=== PATIENT | male | born 1970 | race Caucasian/White ===

== ENCOUNTER 2023-06-26 10:42 | Emergency (ER) | payer OTHER, SELFPAY ==
[2023-06-26] VITALS (8 sets, daily range): BP systolic 120–148; BP diastolic 70–84; PULSE 71–97; RESP 16–18; TEMP 36.2; O2SAT 96–98; BMI 26.6
--- NOTE | 2023-06-26 10:53 | DI.CT.S_ITS ---
PROCEDURE: CT ABDOMEN PELVIS W CON INDICATIONS: L sided flank pain after fall from ladder TECHNIQUE: After the administration of intravenous contrast, axial sections acquired from the lung bases to the pubic symphysis. Coronal and sagittal reformats were performed. For radiation dose reduction, the following was used: automated exposure control, adjustment of mA and/or kV according to patient size. COMPARISON: None. FINDINGS: Image quality: Excellent. Lung bases: Unremarkable. Heart: No significant findings. ABDOMEN: Liver: Unremarkable. Gallbladder: Unremarkable. Biliary ducts: Unremarkable. Pancreas: Unremarkable. Spleen: Unremarkable. Adrenal Glands: Unremarkable. Kidneys and Ureters: Unremarkable. Stomach and Bowel: Stomach, small bowel loops, and colon are unremarkable. Diverticulosis without evidence of acute diverticulitis. Normal appendix. Peritoneum: No abnormal intraperitoneal fluid. No free air. Ventral Wall: No hernias. Abdominal Nodes: No retroperitoneal or mesenteric adenopathy by size criteria. Vessels: Aorta and inferior vena cava are normal in size. Atherosclerotic vascular calcifications. PELVIS: Pelvic Organs: Unremarkable. Bladder: Unremarkable. Pelvic Nodes: No enlarged lymph nodes. Miscellaneous: No hernias are seen. Mild subcutaneous bruising adjacent to the left iliac bone. Bones: Mild degenerative changes. Bilateral L5 pars interarticularis defects without anterolisthesis. IMPRESSION: 1. No acute traumatic injury. 2. Mild subcutaneous bruising adjacent to the left flank and left iliac bone. 3. Diverticulosis without evidence of acute diverticulitis. Dictated by: Arpit Coleman M.D. on 06/26/2023 at 11:42 Approved by: Arpit Coleman M.D. on 06/26/2023 at 11:46
--- NOTE | 2023-06-26 10:53 | DI.RAD.S_ITS ---
PROCEDURE: XR CHEST 1V INDICATIONS: L lower back pain after fall TECHNIQUE: One view of the chest was acquired. COMPARISON: None. FINDINGS: Surgical changes and devices: None. Lungs and pleura: Lungs are clear. No pleural effusions or pneumothorax. Mediastinum: Mediastinal contours appear normal. Heart size is normal. Bones and chest wall: No suspicious bony lesions. Overlying soft tissues appear unremarkable. IMPRESSION: No acute cardiopulmonary process. Dictated by: Arpit Coleman M.D. on 06/26/2023 at 11:35 Approved by: Arpti Coleman M.D. on 06/26/2023 at 11:36
--- NOTE | 2023-06-26 10:56 | ED_ITS ---
HPI - General Adult General Chief complaint: Trauma Stated complaint: ladder collapse at work Time Seen by Provider: 06/26/23 10:50 Source: patient Mode of arrival: Ambulatory Limitations: no limitations History of Present Illness HPI narrative: 52-year-old male. Was at work. It approximately 30 this morning he was up on a ladder. He states that the aluminum ladder collapsed on him. He was approximately 8 ft off the ground. He landed on the ladder on his left side. Did not hit his head. No loss of consciousness. No extremity injuries. No loss of consciousness. He stated that initially he was feeling okay but has the next several hours went on he started developed quite a bit of pain in his left flank area. He is bruising over his left flank. It is tender to touch and to sit up straight. No abdominal pain. No spine pain. No hip pain. He is ambulatory. Has not tried anything for symptoms prior to arrival. Related Data Previous Rx's Medication Instructions Recorded cyclobenzaprine 10 mg tablet 10 mg PO TID PRN muscle spasm #14 06/26/23 tabs hydrocodone 5 mg-acetaminophen 325 1 tab PO Q4-6H PRN pain #10 tabs 06/26/23 mg tablet Review of Systems Constitutional Constitutional: Reports system reviewed and no additional complaints, except as documented Respiratory Respiratory: Reports system reviewed and no additional complaints, except as documented Gastrointestinal Gastrointestinal: Reports system reviewed and no additional complaints, except as documented Genitourinary Genitourinary: Reports system reviewed and no additional complaints, except as documented Musculoskeletal Musculoskeletal: Reports system reviewed and no additional complaints, except as documented Integumentary/Breasts Skin/Breast: Reports system reviewed and no additional complaints, except as documented Neurologic Neurologic: Reports system reviewed and no additional complaints, except as documented Exam Initial Vital Signs Initial Vital Signs: Vital Signs Blood Pressure 126/76 06/26/23 10:49 HENMT Head: normal to inspection and normocephalic Resp Effort & Inspection: normal respiratory effort Auscultation: clear to auscultation bilaterally Cardio Rate: regular rate Rhythm: regular rhythm Back/Spine/Pelvis Cervical Spine: No cervical spasm and No cervical spinal tenderness Thoracic/Lumbar Spine: paraspinal tenderness (Left-sided paraspinal), No thoracic spinal tenderness and No lumbar spinal tenderness Skin Other: Slight bruising and abrasions over the left flank region Extrem General: normal to inspection and capillary refill normal Course Orders Ordered: ED Orders 06/26/23 10:53 CT abdomen pelvis w con Stat XR chest 1V Stat 06/26/23 11:00 Complete Blood Count AUTO DIFF Stat Comprehensive Metabolic Panel Stat Lipase Stat 06/26/23 12:35 Urine Microscopic Stat Discontinued Medications Cyclobenzaprine HCl (Cyclobenzaprine 10 Mg Tablet) 10 mg PO NOW ONE Stop: 06/26/23 12:07 Last Admin: 06/26/23 12:16 Dose: 10 mg Documented By: DIPIKA Hydromorphone HCl (Hydromorphone 1 Mg Inj) 1 mg IV NOW ONE Stop: 06/26/23 10:54 Last Admin: 06/26/23 11:00 Dose: 1 mg Documented By: DIPIKA Hydromorphone HCl (Hydromorphone 0.5 Mg Inj) 0.5 mg IV NOW ONE Stop: 06/26/23 11:34 Last Admin: 06/26/23 11:35 Dose: 0.5 mg Documented By: DIPIKA Acetaminophen (Ofirmev) 1,000 mg in 100 mls @ 400 mls/hr IV NOW ONE Stop: 06/26/23 12:20 Last Admin: 06/26/23 12:15 Dose: 400 mls/hr Documented By: DIPIKA Vital Signs Vital signs: Vital Signs - 8 hr 06/26/23 10:49 06/26/23 10:50 06/26/23 11:10 Temperature 97.2 F L Pulse Rate 97 H 94 H Respiratory Rate 16 Blood Pressure 126/76 126/76 Pulse Oximetry 98 96 Oxygen Delivery Method Room Air 06/26/23 11:30 06/26/23 12:00 06/26/23 12:17 Temperature Pulse Rate 78 76 76 Respiratory Rate 18 18 Blood Pressure 120/70 126/76 Pulse Oximetry 98 98 97 Oxygen Delivery Method Room Air Room Air 06/26/23 12:18 06/26/23 12:18 Temperature Pulse Rate 76 Respiratory Rate Blood Pressure 148/84 H Pulse Oximetry 98 Oxygen Delivery Method Medical Decision Making Lab Data Lab results reviewed: Yes I reviewed the patient's lab results. 06/26/23 11:00 06/26/23 11:00 Labs: Lab Results 06/26/23 Range/Units 11:00 WBC 10.3 (4.5-11.0) X10^3/uL RBC 5.22 (4.5-5.9) X10^6/uL Hgb 17.0 (13.5-17.5) g/dL Hct 49.8 (41-53) % MCV 95.3 (80-100) fL MCH 32.5 (26-34) PG MCHC 34.1 (30-36) % RDW 13.7 (11.6-14.8) % Plt Count 318 (150-400) X10^3/uL Neut % (Auto) 77.5 H (50-75) % Lymph % (Auto) 16.0 L (25-40) % [place] % (Auto) 6.0 (3-14) % Eos % (Auto) 0.2 L (2-4) % Baso % (Auto) 0.3 (0-2) % Neut # (Auto) 8000 H (5823-2716) /uL Lymph # (Auto) 1600 (4226-8031) /uL [place] # (Auto) 600 (0-900) /uL Eos # (Auto) 0 (0-450) /uL Baso # (Auto) 0 (0-100) /uL Sodium 138 (137-145) mmol/L Potassium 4.0 (3.4-5.1) mmol/L Chloride 103 (98-107) mmol/L Carbon Dioxide 26 (22-32) mmol/L BUN 14 (9-20) mg/dL Creatinine 0.94 (0.66-1.25) mg/dL Estimated GFR > 60 (>60) mL/min BUN/Creatinine Ratio 14.9 (6-22) Glucose 95 (70-100) mg/dL Calcium 10.0 (8.4-10.2) mg/dL Total Bilirubin 0.8 (0.2-1.3) mg/dL AST 25 (17-59) IU/L ALT 28 (<50) IU/L Alkaline Phosphatase 79 (38-126) U/L Total Protein 8.0 (6.3-8.2) g/dL Albumin 4.7 (3.5-5.0) g/dL Globulin 3.3 (1.7-4.1) g/dL Albumin/Globulin Ratio 1.4 (1.0-2.8) Lipase 61 (23-300) U/L Urine Dip Bedside Urine Glucose Negative Bedside Urine Bilirubin - Negative Bedside Urine Ketone ++ 40 Urine Specific [place] 1.020 Bedside Urine Occult Blood +++ Bedside Urine pH 6.0 Bedside Urine Protein - Negative Bedside Urine Urobilinogen - Negative Bedside Urine Nitrite - Negative Bedside Urine Leukocytes - Negative Esterase Point of care testing: Urine Dip Bedside Urine Glucose Negative Bedside Urine Bilirubin - Negative Bedside Urine Ketone ++ 40 Urine Specific [place] 1.020 Bedside Urine Occult Blood +++ Bedside Urine pH 6.0 Bedside Urine Protein - Negative Bedside Urine Urobilinogen - Negative Bedside Urine Nitrite - Negative Bedside Urine Leukocytes - Negative Esterase Imaging Data Chest x-ray: Radiologist's Impression: PROCEDURE: XR CHEST 1V INDICATIONS: L lower back pain after fall TECHNIQUE: One view of the chest was acquired. COMPARISON: None. FINDINGS: Surgical changes and devices: None. Lungs and pleura: Lungs are clear. No pleural effusions or pneumothorax. Mediastinum: Mediastinal contours appear normal. Heart size is normal. Bones and chest wall: No suspicious bony lesions. Overlying soft tissues appear unremarkable. IMPRESSION: No acute cardiopulmonary process CT scan - abdomen/pelvis: Radiologist's Impression: PROCEDURE: CT ABDOMEN PELVIS W CON INDICATIONS: L sided flank pain after fall from ladder TECHNIQUE: After the administration of intravenous contrast, axial sections acquired from the lung bases to the pubic symphysis. Coronal and sagittal reformats were performed. For radiation dose reduction, the following was used: automated exposure control, adjustment of mA and/or kV according to patient size. COMPARISON: None. FINDINGS: Image quality: Excellent. Lung bases: Unremarkable. Heart: No significant findings. ABDOMEN: Liver: Unremarkable. Gallbladder: Unremarkable. Biliary ducts: Unremarkable. Pancreas: Unremarkable. Spleen: Unremarkable. Adrenal Glands: Unremarkable. Kidneys and Ureters: Unremarkable. Stomach and Bowel: Stomach, small bowel loops, and colon are unremarkable. Diverticulosis without evidence of acute diverticulitis. Normal appendix. Peritoneum: No abnormal intraperitoneal fluid. No free air. Ventral Wall: No hernias. Abdominal Nodes: No retroperitoneal or mesenteric adenopathy by size criteria. Vessels: Aorta and inferior vena cava are normal in size. Atherosclerotic vascular calcifications. PELVIS: Pelvic Organs: Unremarkable. Bladder: Unremarkable. Pelvic Nodes: No enlarged lymph nodes. Miscellaneous: No hernias are seen. Mild subcutaneous bruising adjacent to the left iliac bone. Bones: Mild degenerative changes. Bilateral L5 pars interarticularis defects without anterolisthesis. IMPRESSION: 1. No acute traumatic injury. 2. Mild subcutaneous bruising adjacent to the left flank and left iliac bone. 3. Diverticulosis without evidence of acute diverticulitis. MDM Narrative Medical decision making narrative: CT scan shows no acute intra-abdominal issues. He does have hematuria. He has skin contusions over his left flank. It was the IV Tylenol that helped his symptoms the most. No indication for admission to the hospital. No indication for surgical consultation. Discussed return precautions with the patient. He expressed understanding and agreement. Discharge Plan Departure Patient Disposition: Home Clinical Impression: Contusion of skin, Hematuria Instructions: Contusion, Blood in Urine Activity Restrictions/Additional Instructions: I would not be surprised if over the next couple days your symptoms persist. Be sure that your increasing your fluid intake. Use the medications as needed. Your activity is limited by the discomfort that you were having. Return to the emergency department for new or worsening symptoms. Prescriptions: New cyclobenzaprine 10 mg tablet 10 mg PO TID PRN (Reason: muscle spasm) Qty: 14 0RF hydrocodone-acetaminophen 5-325 mg tablet 1 tab PO Q4-6H PRN (Reason: pain) Qty: 10 0RF Stand Alone Forms: Patient Portal/API
[2023-06-26] MEDS: HYDROMORPHONE 1 MG INJ IV (11:00)
[2023-06-26 11:08] LABS: Add Manual Diff / Slide Review NO; Basophils Absolute Auto 0 /uL (0-100); Basophils Percent Auto 0.3 % (0-2); Eosinophils Absolute Auto 0 /uL (0-450); Eosinophils Percent Auto 0.2 % (2-4); Hematocrit 49.8 % (41-53); Lymphocytes Absolute Auto 1600 /uL (1100-4500); Mean Corpuscular HGB Conc 34.1 % (30-36); Mean Corpuscular Hemoglobin 32.5 PG (26-34); Mean Corpuscular Volume 95.3 fL (80-100); Monocytes Absolute Auto 600 /uL (0-900); Neutrophils Absolute Auto 8000 /uL (1500-7000); Neutrophils Percent Auto 77.5 % (50-75); Platelet Count 318 X10^3/uL (150-400); Red Blood Cell Count 5.22 X10^6/uL (4.5-5.9); Red Cell Distribution Width 13.7 % (11.6-14.8); White Blood Cell Count 10.3 X10^3/uL (4.5-11.0)
[2023-06-26 11:19] LABS: Alanine Aminotransferase 28 IU/L (<50); Albumin 4.7 g/dL (3.5-5.0); Albumin Globulin Ratio 1.4 (1.0-2.8); Alkaline Phosphatase 79 U/L (38-126); Aspartate Aminotransferase 25 IU/L (17-59); BUN Creatinine Ratio 14.9 (6-22); Bilirubin Total 0.8 mg/dL (0.2-1.3); Blood Urea Nitrogen 14 mg/dL (9-20); Carbon Dioxide 26 mmol/L (22-32); Chloride 103 mmol/L (98-107); Estimated Glomerular Filt Rate > 60 mL/min (>60); Globulin 3.3 g/dL (1.7-4.1); Glucose 95 mg/dL (70-100); HEMOLYSIS < 15 (0-50); Lipase 61 U/L (23-300); Sodium 138 mmol/L (137-145)
[2023-06-26] MEDS: HYDROMORPHONE 0.5 MG INJ IV (11:35)
[2023-06-26] MEDS: ACETAMINOPHEN IV 1,000 MG/100 ML VIAL 400 MG IV (12:15)
[2023-06-26] MEDS: CYCLOBENZAPRINE 10 MG TABLET PO (12:16)
[2023-06-26 13:02] LABS: Bacteria Urine Few (2-10); Culture Indicated Urine Cult Not Indicated; RBC Urine 10-30/HPF (0-5/HPF); Squamous Epithelial Cell Urine None Seen (0-5/HPF); WBC Urine 0-1/HPF (0-5/HPF)
== END 2023-06-26 12:51 | disposition home or self-care (01) ==
PROVIDERS: Emergency Provider Emergency Medicine
DX: S30.1XXA Contusion of abdominal wall, initial encounter (principal); R31.9 Hematuria, unspecified; M54.50 Low back pain, unspecified; W11.XXXA Fall on and from ladder, initial encounter
CPT/HCPCS: 36415; 71045; 74177; 80053; 81003; 81015; 83690; 85025; 96365; 96375; 96376; 99284; J0131; J1170; Q9967